=== PATIENT | male | born 1965 | race Caucasian/White ===

== ENCOUNTER 2018-02-09 21:33 | Inpatient (IN) ==
[2018-02-09 22:20] LABS: URINE SOURCE VOIDED
[2018-02-09 22:49] LABS: BILIRUBIN URINE NEGATIVE (NEGATIVE); BLOOD URINE MODERATE (NEGATIVE); COLOR YELLOW; GLUCOSE URINE NEGATIVE (NEGATIVE); KETONE URINE NEGATIVE (NEGATIVE); LEUKOCYTES URINE NEGATIVE (NEGATIVE); NITRITE URINE NEGATIVE (NEGATIVE); PH URINE 6.5; PROTEIN URINE NEGATIVE (NEGATIVE); SP GRAVITY URINE 1.018; TURBIDITY URINE CLEAR (CLEAR); UROBILINOGEN URINE NORMAL (NORMAL)
[2018-02-09 22:50] LABS: UR EPITHELIAL CELLS <10 /HPF (<10); URINE BACTERIA NEGATIVE /HPF; URINE WBC <10 /HPF (<10)
[2018-02-09] MEDS ORDERED: MORPHINE IM ONE (22:56)
[2018-02-09] MEDS ORDERED: ZOFRAN ODT PO ONE (22:57)
[2018-02-10 00:33] LABS: BASO# 0.03 X1000 (0.0-0.2); BASO% 0.1 % (0.0-0.8); EOS# 0.02 X1000 (0.0-0.7); EOS% 0.1 % (0.0-10.0); HEMATOCRIT 48.5 % (42.0-52.0); HEMOGLOBIN 16.8 g/dL (14.0-18.0); IMM GRAN# 0.05 X1000 (0.0-0.04); IMM GRAN% 0.2 % (0.0-0.5); LYMPH# 1.85 X1000 (1.2-3.4); LYMPH% 8.3 % (20.5-51.1); MCH 30.2 PG (27-31); MCHC 34.6 g/dL (33-37); MCV 87.2 FL (81-99); MONO# 0.84 X1000 (0.11-0.59); MONO% 3.8 % (1.7-9.3); MPV 10.5 FL (7.4-10.4); NEUT# 19.59 X1000 (1.4-6.5); NEUT% 87.5 % (42.2-75.2); PLT 293 X1000 (130-400); RBC 5.56 XMIL (4.7-6.1); RDW 12.6 % (11.5-14.5); WBC 22.38 X1000 (4.8-10.8)
[2018-02-10 00:47] LABS: AGAP 14; ALB/GLOB RATIO 1.4; ALBUMIN 4.8 g/dL (3.5-5.0); ALKALINE PHOSPHATASE 72 U/L (32-122); BUN 11 mg/dL (8-22); CALCIUM 9.5 mg/dL (8.8-10.2); CHLORIDE 99 mmol/L (98-107); COSMO 274; CREATININE 0.8 mg/dL (0.7-1.2); ESTIMATED GFR > 60; GLUCOSE 153 mg/dL (70-104); GOT 16 U/L (10-34); GPT 21 U/L (10-44); POTASSIUM 3.5 mmol/L (3.5-5.1); SODIUM 136 mmol/L (136-145); TCO2 23 mmol/L (25-35); TOTAL BILIRUBIN 0.73 mg/dL (0.20-1.00); TOTAL PROTEIN 8.2 g/dL (6.3-8.3)
[2018-02-10] MEDS ORDERED: MORPHINE IV PRN (01:53)
[2018-02-10] MEDS ORDERED: NS 1,000 ML IV ONE (01:53)
[2018-02-10] MEDS ORDERED: ZOFRAN IV PRN (01:57)
--- NOTE | 2018-02-10 02:00 | PROVIDER DOCUMENTATION ---
This chart was entered by Ria Dong Scribe, acting as scribe for Samantha Ling DO. HPI-General Adult - General Chief Complaint: Flank Pain Stated Complaint: POSS KIDNEY STONE Time Seen by Provider: 02/09/18 22:37 Source: patient Allergies/Adverse Reactions: Patient Allergies Allergy/AdvReac Type Severity Reaction Status Date / Time No Known Allergies Allergy Verified 12/14/17 16:05 Home Medications: Home Medication List Medication Instructions Recorded Confirmed Last Taken Type LISINOpril [Prinivil] 20 mg PO DAILY 09/27/12 03/07/15 03/07/15 History Alprazolam [Xanax] 0 mg PO DAILY 03/07/15 03/07/15 03/06/15 History Docusate Sodium [Colace] 100 mg PO DAILY #30 capsule 03/07/15 Unknown Rx Metoprolol Succinate E.r. [Toprol 25 mg PO DAILY #30 tablet 03/07/15 Unknown Rx Xl] Peg 3350/Na Sulf,Bicarb,Cl/KCl 4,000 ml PO DIRECTED #1 03/07/15 Unknown Rx [Golytely Solution] soln.recon Mupirocin 1 gm TP TID #30 oint...g. 12/14/17 Unknown Rx - History of Present Illness -Gen Adult Nature of Presenting Problems: pt is a 52 yr old male presenting with right flank pain this afternoon, pt denies any urinary complaints. pt hx of kidney stones, reports pain same as prior stones. Location of Pain/Injury: reports: other (rt flank) Pain Radiation: reports: no radiation Quality of Pain: reports: sharp Severity: reports: moderate Onset/Duration: reports: this afternoon Timing: reports: still present Context/Activities at Onset: reports: light activity Modifying Factors: improves with: nothing Associated Symptoms: denies: fever/chills, genitourinary problems, nausea, shortness of breath, vomiting Similar Symptoms Previously?: Yes Recently seen or treated by another doctor?: No Review of Systems - Adult - REVIEW OF SYSTEMS - ADULT Constitutional: reports: no symptoms reported Eyes: reports: no symptoms reported Ears, Nose, Mouth & Throat: reports: no symptoms reported Cardiovascular: denies: chest pain, palpitations, syncope Respiratory: denies: cough, shortness of breath Gastrointestinal: reports: abdominal pain. denies: diarrhea, nausea, vomiting Genitourinary: reports: flank pain. denies: dysuria, frequency, urinary retention Musculoskeletal: denies: back pain, muscle aches, neck pain Integumentary: reports: no symptoms reported Neurological: reports: no symptoms reported Psychiatric: reports: no symptoms reported Endocrine: reports: no symptoms reported Hematologic/Lymphatic: reports: no symptoms reported Allergic/Immunologic: reports: no symptoms reported All Other Systems: Reviewed and Negative Past History - Adult - PAST MEDICAL HISTORY-ADULT Review of Records: reports: Nursing Assessment Review, Medications Reviewed, Social history reviewed & non-contributory. Major Childhood Illnesses: reports: denies history Cardiovascular: reports: HTN Respiratory: reports: denies history Gastrointestinal: reports: denies history Obstetrical/Gynecological: reports: denies history Genitourinary: reports: denies history Musculoskeletal: reports: denies history Neurological: reports: denies history Endocrine/Immune: reports: denies history Other Conditions: reports: denies history - PRIOR SURGERIES/PROCEDURES Surgical/Procedure History: reports: none - IMMUNIZATION STATUS Childhood Immunizations: See Nurse Assessment Flu Vaccine: See Nurse Assessment - FAMILY HISTORY Family History: reviewed, not pertinent - SOCIAL HISTORY Smoking: cigarettes Provider spent 3-5 mins advising pt. on dangers of tobacco.: Discussed manners to quit use, and f/u contacts for add'l counseling. Substance Use: alcohol Living Situation: family Physical Exam-General - PHYSICAL EXAM-ADULT Initial Vital Signs Reviewed: Yes - CONSTITUTIONAL General Appearance: appears well, alert, no apparent distress - EYES Eyes: PERRL/EOMI - HEAD, EARS, NOSE, MOUTH & THROAT HENMT: normocephalic/atraumatic, moist mucous membranes, normal ENT inspection - NECK Neck: non-tender, full range of motion, supple, normal inspection - RESPIRATORY Respiratory: chest non-tender, lungs clear, normal breath sounds - CARDIOVASCULAR Cardiovascular: normal peripheral pulses, regular rate, rhythm, no edema - GASTROINTESTINAL (ABDOMEN) Abdominal Exam: normal bowel sounds, soft, tenderness (RLQ) - LYMPHATIC Lymphatic: no adenopathy - MUSCULOSKELETAL Back Exam: normal inspection, no CVA tenderness, no vertebral tenderness Extremity: normal range of motion, non-tender, normal gait, normal inspection - SKIN Integumentary: normal color, normal turgor, warm/dry - NEUROLOGIC Neurologic: grossly normal, no motor/sensory deficits - PSYCHIATRIC Psych/Mental Status: normal mood/affect, normal thought content, normal thought process, oriented x 3 Progress - PLAN OF CARE/RESULTS Progress/Plan/Lab Results: Vital Signs - 8 hr 02/09/18 21:53 Temperature 98.7 F Pulse Rate 111 H Respiratory Rate 18 Blood Pressure 202/101 O2 Sat by Pulse Oximetry 99 Laboratory Results - last 24 hr 02/09/18 21:56 Urine Source VOIDED Urine Color YELLOW Urine Turbidity CLEAR Urine pH 6.5 Ur Specific Balm 1.018 Urine Protein NEGATIVE Ur Glucose (Stick) NEGATIVE Ur Ketones (Stick) NEGATIVE Urine Blood MODERATE A Urine Nitrite NEGATIVE Urine Bilirubin NEGATIVE Urobilinogen Dipstick NORMAL Urine Leukocytes NEGATIVE Urine WBC (Auto) <10 Urine RBC (Auto) 10-20 A U Epithel Cells (Auto) <10 Urine Bacteria (Auto) NEGATIVE Orders Category Date Time Status CT IVP (RENAL STONE SEARCH) [CT] Stat Exams 02/09/18 22:52 Ordered CBC WITH ELECTRONIC DIFF [HEME] Stat Lab 02/09/18 22:52 Uncollected COMPREHENSIVE METABOLIC PANEL [CHEM] Stat Lab 02/09/18 22:52 Uncollected UA [URINALYSIS] [URINALYSIS] Stat Lab 02/09/18 21:56 Completed Morphine Med 02/09/18 22:56 Discontinued 4 mg IM NOW ONE Ondansetron Odt [Zofran Odt] Med 02/09/18 22:57 Discontinued [address] PO NOW [address] revealed likely cholecystitis. He has 22k WBC. Case discussed with Dr Flores who will admit him. He was given Zosyn IV. Bili and transaminases WNL. Excellent relief of symptoms with a single dose of Morphine. Result Diagrams: 02/10/18 00:00 02/10/18 00:00 Departure - Departure Date of Disposition Decision: 02/10/18 Time of Disposition Decision: 02:29 DIAGNOSIS: Acute cholecystitis Disposition: ADMITTED INPATIENT 09 Certified Medical Emergency: Emergent Condition: Fair Referrals and Follow-Ups: Rajesh Flores [Primary Care Provider] - - Critical Care Note This patient required my direct & personal management of CC.: No Attestation - Physician/ GARY Attestation The physician spent face to face time with patient:: Yes Advanced Practice Provider documentation review:: Supervising physician onsite and consulted in the evaluation and care of this patient. The physician did have a face to face encounter with the patient. This chart was documented by the indicated scribe, (Ria Dong, Kayla) and accurately reflects the services I performed and decisions made by me, Samantha Ling DO, as attested by the provider's signature.
[2018-02-10] MEDS: ZOSYN 3.375 GM in NS 50 ML IV SCH ×4 (03:25→20:49)
--- NOTE | 2018-02-10 08:11 | HISTORY AND PHYSICAL ---
CHIEF COMPLAINT: Right upper quadrant pain and tenderness. HISTORY: This is a 52-year-old who yesterday after eating pizza developed significant right upper quadrant pain, bloating and discomfort. He has had similar episodes over the past year, 1 time occurring in the middle of the night. Most the time the pain relents and yesterday, the pain started to improve before they gave him pain medicine. CT scan showed some gallstones and possible acute cholecystitis. PAST MEDICAL HISTORY: Pertinent for hypertension and anxiety. MEDICATIONS: Prinivil 20 mg daily, Metoprolol-XL 25 mg daily, Xanax, as needed, Colace 100 mg daily and GoLYTELY as needed. He also has some Bactroban ointment 3 times a day. ALLERGIES: Denies any drug allergies. REVIEW OF SYSTEMS: Negative in every subsystem except his GI tract, and he does have some intermittent anxiety on psychiatric. PAST SURGICAL HISTORY: No prior surgery. FAMILY HISTORY: Noncontributory. SOCIAL HISTORY: He smokes a pack and half a day. He is . Denies alcohol abuse. He works in construction. PHYSICAL EXAMINATION: VITAL SIGNS: He is afebrile. Heart rate 62, blood pressure 169/108. CARDIAC: No carotid bruits are heard. LUNGS: Bilateral breath sounds are present. HEART: Regular rate and rhythm. ABDOMEN: Soft. He is tender in the right upper quadrant with a positive Graf sign. EXTREMITIES: He does have pedal pulses. No peripheral edema. NEUROLOGIC: He is awake and alert. DIAGNOSTICS/LABORATORIES: White count is 22,400. Chemistry is negative. ASSESSMENT: Probable acute cholecystitis. PLAN: A laparoscopic cholecystectomy. I have discussed the procedure with him and the benefits and risks. He understands and wants to proceed. cc: Elliot Flores MD
[2018-02-10] MEDS ORDERED: DIPRIVAN 1% ONE (08:18)
[2018-02-10] MEDS ORDERED: QUELICIN (DOSE) ONE (08:20)
[2018-02-10] MEDS ORDERED: SODIUM CHLORIDE 0.9% 10 ML ONE (08:33)
[2018-02-10] MEDS ORDERED: NORCURON ONE (08:33)
[2018-02-10] MEDS ORDERED: XYLOCAINE-MPF 2% ONE (08:33)
[2018-02-10] MEDS ORDERED: FENTANYL ONE ×3 (08:34→11:02)
--- NOTE | 2018-02-10 09:02 | Diag Imaging Result Doc PS360 ---
EXAM: CT IVP (RENAL STONE SEARCH) 02/09/2018 HISTORY: SEVERE R FLANK PAIN. TECHNIQUE: CT of the abdomen and pelvis without contrast (stone search.) COMMENT: There is minimal platelike atelectasis in the posterior lower lobes. Both adrenal glands are enlarged as they were at the time the previous examination of 03/07/2015. There are multiple small densely calcified gallstones and there is some edema or para cholecystic fluid around the gallbladder which was not apparent at the time the previous study. There is no evidence of nephrolithiasis or hydronephrosis. There is a fairly large amount of stool present in the ascending colon. There is no evidence of small bowel dilatation. The appendix is normal in appearance. There is marked diverticulosis of the sigmoid colon without evidence of acute diverticulitis. The urinary bladder is not distended and there is no evidence of ureterolithiasis. There is a phlebolith in the right gonadal vein. There is no evidence of acute bony abnormality. IMPRESSION: Cholelithiasis and acute cholecystitis. No evidence of urolithiasis or obstructive uropathy. Diverticulosis coli. Electronically signed by Neo De Santiago 02/10/2018 8:59 AM
[2018-02-10] MEDS ORDERED: LR 1,000 ML ONE (09:31)
[2018-02-10] MEDS ORDERED: SODIUM CHLORIDE 0.9% ONE (09:31)
[2018-02-10] MEDS ORDERED: SENSORCAINE-MPF 0.5%/EPI 1:200,000 ONE (09:31)
[2018-02-10] MEDS ORDERED: TORADOL ONE (10:24)
[2018-02-10] MEDS ORDERED: ZOFRAN ONE (10:24)
[2018-02-10] MEDS ORDERED: DECADRON ONE (10:24)
[2018-02-10] MEDS ORDERED: ROBINUL ONE ×3 (10:28→10:53)
[2018-02-10] MEDS ORDERED: VERSED ONE (10:42)
[2018-02-10] MEDS ORDERED: NEOSTIGMINE ONE (10:53)
--- NOTE | 2018-02-10 11:00 | Diag Imaging Result Doc PS360 ---
EXAM: OPERATIVE CHOLANGIOGRAM 02/10/2018 HISTORY: GALLBLADDER TECHNIQUE: Intraoperative cholangiogram one view COMMENT: There are no definite filling defects and there is some contrast in the duodenum. The common hepatic duct is not well seen. IMPRESSION: No evidence of retained stones in the common bile duct. Electronically signed by Neo De Santiago 02/10/2018 10:58 AM
[2018-02-10] MEDS ORDERED: XANAX PO PRN ×2 (11:59→16:57)
--- NOTE | 2018-02-10 12:00 | OPERATIVE NOTE ---
PROCEDURE DATE: 02/10/2018 PROCEDURE PERFORMED: Laparoscopic cholecystectomy with operative cholangiogram. SURGEON: Elliot Flores MD. STAVE CUTTING SUPERVISOR: Mitzy Jordan RN. PREOPERATIVE DIAGNOSIS: Acute calculous cholecystitis. POSTOPERATIVE DIAGNOSIS: Acute calculous cholecystitis. FINDINGS: The cholangiogram revealed a normal-sized common duct, free flow into the duodenum. No intraluminal filling defects were seen. DESCRIPTION OF OPERATION: Satisfactory general endotracheal anesthesia was achieved. The abdomen was prepped and draped in a sterile fashion. We anesthetized skin at the base of the umbilicus, incised the skin, and carried our incision down to the fascia. We scored the fascia, introduced an 11 trocar with Optiview technique into the abdominal cavity. We insufflated through this trocar. Under direct visualization, we used a 5 trocar in the midclavicular line, a 5 trocar near the anterior axillary line, an 11 mm trocar in the midepigastrium. We placed the patient in reverse Trendelenburg and turned him to the left. We grasped the fundus of the gallbladder, reflected it cephalad. The gallbladder was noted to be edematous. We dissected through the fatty tissue to the infundibulum. We then dissected the triangle of Calot until we obtained a critical view. We clipped the cystic artery proximally x2, distally x1, and divided it. Cystic artery was clipped near the junction of the gallbladder, incised. We introduced a Ursula catheter and shot the cholangiogram. The findings above were noted. We removed the cholangiogram catheter, clipped the cystic duct on the opposite side of cystic ductotomy x2, and transected it. We then dissected the gallbladder away from the liver using the spatula cautery. After we had the gallbladder from the liver, we changed the video laparoscope to the mid epigastric trocar. We introduced an EndoCatch, placed the gallbladder within the bag and delivered out of the abdominal cavity through the umbilical trocar site. We had to enlarge that somewhat in order to deliver the gallbladder in toto. We looked back. Satisfactory hemostasis achieved. We flattened the patient. We used the Ranjith-Brisa wound closure for the peritoneum of the epigastric trocar site. We then desufflated and removed our trocars. We placed a 2-0 Polysorb [id number] stitch in the fascia at the umbilicus. We added another 2-0 Polysorb fascial stitch in the epigastrium. We then closed the skin at each incision with 4-0 Polysorb subcuticular stitches. Sterile OpSites were applied. He tolerated it well and was sent to the recovery room in satisfactory condition. cc: Elliot Flores MD
[2018-02-10] MEDS: NORCO-10 PO PRN ×2 (16:40→22:08)
[2018-02-10] MEDS: NICODERM PATCH TD SCH (17:30)
[2018-02-10] MEDS: PERIDEX MT SCH (20:49)
[2018-02-11] MEDS: ZOSYN 3.375 GM in NS 50 ML IV SCH ×2 (02:40→09:16)
[2018-02-11] MEDS: NORCO-10 PO PRN (02:47)
[2018-02-11 07:28] VITALS: BP 175/92
[2018-02-11] MEDS ORDERED: NORVASC PO SCH (09:00)
[2018-02-11] MEDS ORDERED: HYZAAR 100/12.5 MG TAB PO SCH (09:00)
[2018-02-11] MEDS: NICODERM PATCH TD SCH (09:17)
[2018-02-11] MEDS: PERIDEX MT SCH (09:21)
--- NOTE | 2018-02-11 10:05 | GENERAL SURGERY PROGRESS NOTE ---
DATE: 02/11/2018 It is 9:00 in the morning. Mr. Boss is doing well. He is afebrile, heart rate 59, blood pressure 175/92. He is taking liquids satisfactorily. His wounds were fine. The plan is to discharge him. We discussed wound care, activity, and diet. He will return to the office in 1 week for followup. cc: Elliot Flores MD
== END 2018-02-11 10:01 | disposition home or self-care (01) | DRG 419 ==
LOC: ED 21:33 → 4N 02-10 04:27
PROVIDERS: ADMIT Surgery; ATTEND Surgery
CPT/HCPCS: 36415; 74176; 74300; 80053; 81001; 85025; 88304; 94761; 94799; 96361; 96365; 96372; 99285; A9270; J0330; J1100; J1885; J2250; J2270; J2405; J2543; J3010; J7030; J7120; Q9966; Q9967